=== PATIENT | male | born 1995 | race African-American/Black ===

== ENCOUNTER 2018-10-13 17:31 | Emergency (ER) | payer MEDICAID ==
[~2018-10-13] VITALS: Ht 185.4 cm; Wt 68.0 kg
[2018-10-13] MEDS ORDERED: ACETAMINOPHEN WITH CODEINE 300/30MG TABLET PO ONE (23:45)
[2018-10-13] MEDS ORDERED: CEPHALEXIN 250MG CAPSULE PO ONE (23:45)
[2018-10-13] MEDS ORDERED: IBUPROFEN 400MG TABLET PO ONE (23:45)
[2018-10-13] MEDS ORDERED: SULFAMETHOXAZOLE/TRIMETHOPRIM 800/160MG TABLET PO ONE (23:45)
[2018-10-14 00:09] VITALS: BP 111/86
== END 2018-10-14 00:55 | disposition home or self-care (01) ==
LOC: ER 17:31
DX: L03.314 Cellulitis of groin (principal); L02.214 Cutaneous abscess of groin
CPT/HCPCS: 99284